=== PATIENT | male | born 1990 | race Two or more races ===

== ENCOUNTER 2024-09-20 20:05 | Emergency (ER) | payer OTHER ==
[~2024-09-20] VITALS: Ht 172.7 cm; Wt 77.1 kg
[2024-09-20 20:29] VITALS: BP 135/83; TEMP 98.1; O2SAT 98
== END 2024-09-20 20:48 ==
LOC: ER 20:10
DX: S50.812A Abrasion of left forearm, initial encounter (principal); S80.211A Abrasion, right knee, initial encounter; S80.212A Abrasion, left knee, initial encounter; S00.81XA Abrasion of other part of head, initial encounter; W13.3XXA Fall through floor, initial encounter; Y93.89 Activity, other specified; Y92.89 Other specified places as the place of occurrence of the external cause; Y99.8 Other external cause status
CPT/HCPCS: 99283; A6403